=== PATIENT | female | born 1960 | race Caucasian/White ===

== ENCOUNTER 2024-03-25 12:22 | Emergency (ER) | payer BC, SELFPAY ==
[2024-03-25] VITALS (7 sets, daily range): BP systolic 137–156; BP diastolic 58–94; PULSE 50–55; BMI 32.7
[2024-03-25 12:55] LABS: % Basophils 1.1 % (0-2); % Eosinophils 3.9 % (0-6); % Immature Granulocytes 0.4 % (0-0.5); % Lymphocytes 22.9 % (20.5-51.1); % Monocytes 7.3 % (1.7-9.3); % Neutrophils 64.4 % (42.2-75.2); Absolute Basophils 0.1 10^3/uL (0-0.2); Absolute Eosinophils 0.3 10^3/uL (0-0.7); Absolute Lymphocytes 1.9 10^3/uL (1.2-3.4); Absolute Monocytes 0.6 10^3/uL (0.1-0.6); Absolute Neutrophils 5.4 10^3/uL (1.4-6.5); Hematocrit 31.8 % (37.0-47.0); Hemoglobin 10.3 g/dL (12.0-16.0); Mean Corp Hgb Conc. 32.4 g/dL (33.0-37.0); Mean Corpuscular Hgb 28.7 pg (27.0-31.0); Mean Corpuscular Volume 88.6 fL (81.0-99.0); Mean Platelet Volume 10.9 fL (7.4-10.4); Nucleated Red Blood Cells % 0 %; Platelet Count 273 10^3/uL (130-400); Red Blood Cell Count 3.59 10^6/uL (4.20-5.40); Red Cell Dist. Width 15.8 % (11.5-14.5); White Blood Cell Count 8.3 10^3/uL (4.8-10.8)
[2024-03-25 13:12] LABS: ALT (SGPT) 22 U/L (0-35); AST (SGOT) 31 U/L (14-36); Albumin 3.8 g/dl (3.5-5.0); Alkaline Phosphatase 150 U/L (38-126); Blood Urea Nitrogen 31 mg/dl (7-17); Calcium 10.3 mg/dl (8.4-10.2); Carbon Dioxide 26 mmol/L (22-30); Chloride 107 mmol/L (98-107); Estimated Creatinine Clearance 57 ml/min; Glucose 108 mg/dl (70-99); Potassium 4.5 mmol/L (3.5-5.1); Sodium 140 mmol/L (135-145); Total Bilirubin 0.5 mg/dl (0.2-1.3); Total Protein 6.2 g/dl (6.3-8.2); eGFR > 60.00
--- NOTE | 2024-03-25 13:12 | EDRN ---
Dr. Lantigua was just in room w/pt at this time.
--- NOTE | 2024-03-25 13:22 | EDRN ---
No symptoms during orthostatic VS. Pt administered cup of water okayed by Dr. Lantigua at this time. Orthostatics reported to Dr. Lantigua.
--- NOTE | 2024-03-25 13:49 | ED.GENMED ---
History of Present Illness
General
Chief Complaint: Fainting/Passed Out
Source: patient
Exam Limitations: none
Time Seen by Provider: 03/25/24 12:57
Nursing documentation reviewed up to this point in time: agreed with
History of Present Illness
History of Present Illness:
63-year-old female presents with a syncopal event, she has hypertension previously had syncope with low blood pressure, when meds were adjusted her gabapentin was recently increased from from 300 twice daily to 600 3 times daily, she has some stress
at work, on her feet all day, was at work on her feet felt nauseous anxious passed out now feeling better denies any chest pain or shortness of breath no dark or bloody stools
Past History
Past History
ED Past Medical History: HTN and Hypothyroidism
ED Past Surgical History: and Orthopedic
Social History
Tobacco: Smoker
Alcohol: None
Drug: None
Personal:
Living: with family
Employment: Employed
Review of Systems
Review of Systems
All Other Systems: Not applicable
Constitutional: Denies fever or fatigue
Respiratory: Reports no symptoms; Denies cough
Cardiac: Reports syncope; Denies chest pain, diaphoresis or palpitations
ABD/GI: Reports nausea
: Reports no symptoms
Musculoskeletal: Reports no symptoms
Skin: Reports no symptoms
Neurological: Reports dizzy; Denies weakness or numbness
Endocrine: Reports no symptoms
Hematologic/Lymphatic: Reports no symptoms
Psychiatric: Reports no symptoms
Phy Exam
Physical Exam
Physical Exam:
Physical Exam
General: no apparent distress, not acutely ill
Neck: No jaundice
Heart: s1/s2 regular rate and rhythm, no murmur. equal radial pulses.
Lungs: no acute respiratory distress. clear bilaterally
Abdomen: Nontender
Neuro: alert and oriented. no focal neurological deficits
Skin: no rash
Psychiatric: well kept. interactive and cooperative
Extremities: no edema. No calf pain
Scores
[place] Syncope Rule
Conjestive Heart Failure History: No
Hematocrit <30%: No
EKG Abnormal (New changes, non NSR on EKG/Monitor): No
Shortness of Breath Symptoms: No
Systolic BP <90 mmHg at Triage: No
Patient is high risk for syncope: No
Course
Orders/Labs/Results
Orders:
Orders
03/25/24 12:25
Electrocardiogram (*1) Urgent
Reason for Study: Syncope
EKG- Treatment ONCE
03/25/24 12:47
Complete Blood Count/With Diff Urgent
Comprehensive Metabolic Panel Urgent
03/25/24 13:15
Orthostatic VS- Treatment ONCE
Abnormal Lab Results
03/25/24
12:47
RBC 3.59 L 10^6/uL
(4.20-5.40)
Hgb 10.3 L g/dL
(12.0-16.0)
Hct 31.8 L %
(37.0-47.0)
MCHC 32.4 L g/dL
(33.0-37.0)
RDW 15.8 H %
(11.5-14.5)
MPV 10.9 H fL
(7.4-10.4)
BUN 31 H mg/dl
(7-17)
Glucose 108 H mg/dl
(70-99)
Calcium 10.3 H mg/dl
(8.4-10.2)
Alkaline Phosphatase 150 H U/L
(38-126)
Total Protein 6.2 L g/dl
(6.3-8.2)
03/25/24 12:47
03/25/24 12:47
Vital Signs
Initial and Last Documented VS:
Initial Vital Signs
BP
146/75
03/25/24 12:35
Last Documented Vital Signs
Temp Pulse Resp BP Pulse Ox
98.0 F 51 12 146/75 96
03/25/24 12:40 03/25/24 12:45 03/25/24 12:45 03/25/24 12:40 03/25/24 12:45
MDM/Problems Addressed
Differential Diagnosis Includes:
Vasovagal arrhythmia, dehydration, orthostasis, doubt PE ACS or primary coronary event
MDM/Problems Addressed:
Syncope
Chronic conditions affecting care:
Hypertension chronic back
Acute Exacerbation and/or Progression of Chronic Illness:
Hypertension chronic back
*Pulse Oximetry
Patient hypoxic: no
*EKG
Interpreted by ED Provider?: Yes
Interpretation: normal
Comparison EKG: no comparison EKG present
Heart Rate: 70
Rate: normal
Rhythm: sinus
Ischemia: no ischemia
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
Rate: normal
Interpretation: normal
Heart Rate: 70
Rhythm: sinus
*Critical Care Note
Total Time (30-74mins, 75-104mins- exclusive of procedures): Not Applicable
Update Note
Update Note:
Update symptoms appear to be vasovagal perhaps orthostasis meds recently recently increased, feels fine here labs and EKG noted
ED Attending Note
-
Portions of this chart may have been created with voice recognition software.� Occasional wrong word or��sound alike� substitutions may have occurred due to the inherent limitations of voice recognition software.
Discharge Plan
Departure
Patient Disposition: Home (Routine Discharge)
Date of Disposition: 03/25/24
Time of Disposition: 13:53
Patient with high blood pressure during this ER visit?: No
Condition: Good
Discharge Problem:
Syncope and collapse
Instructions: Syncope (Fainting) (DC)
Prescriptions:
No Action
levothyroxine 125 MCG tablet
100 mcg PO DAILY
metoprolol tartrate 50 MG tablet
25 mg PO DAILY
lisinopril-hydrochlorothiazide 1 EACH tablet
1 ea PO DAILY
Patient Comments:
20mg
ondansetron 4 MG tablet,disintegrating
4 mg PO TIDPRN PRN (Reason: n/v) Qty: 6 0RF
gabapentin 600 mg Tablet
600 mg PO TID
meloxicam 15 mg Tablet
15 mg PO DAILY
Referrals:
Kary Muñoz MD [Family Provider] - Next open appointment
Activity Restrictions/Additional Instructions:
Drink plenty of fluids, consider lowering the dose of your gabapentin to the prior dose discussed this with your primary care provider
Interventions
Interventions:
*Risk Screen - Suicide Last Done: 03/25/24 12:31
*General Assessment Last Done: 03/25/24 12:31
*Neglect/Abuse Screening Last Done: 03/25/24 12:31
ED- Fall Risk Assessment Last Done: 03/25/24 12:41
*ED COVID-19 Vaccine History Last Done: 03/25/24 12:30
ED- Cardiac Assessment Last Done: 03/25/24 12:41
ED- Neurological Assessment Last Done: 03/25/24 12:41
Discharge Date and Time
Print Language: YI
== END 2024-03-25 14:11 | disposition home or self-care (01) ==
LOC: EMR 12:22
PROVIDERS: EMERGENCY PHYSICIAN Emergency Medicine; FAMILY PHYSICIAN Family Medicine
DX: R55 Syncope and collapse (principal); I10 Essential (primary) hypertension; F17.200 Nicotine dependence, unspecified, uncomplicated
CPT/HCPCS: 99284; 80053; 85025; 93005